=== PATIENT | male | born 1955 | race Caucasian/White ===

== ENCOUNTER 2024-03-01 13:43 | Emergency (ER) | payer OTHER, SELFPAY ==
[2024-03-01 13:55] VITALS: BP 156/82; PULSE 104; TEMP 37; O2SAT 95; BMI 35.1
--- NOTE | 2024-03-01 14:07 | ED.SKABFB1 ---
HPI - Skin/Abscess/Foreign Bdy General Chief complaint: Skin/Abscess/Foreign Body Stated complaint: RASH Time Seen by Provider: 03/01/24 13:45 Source: patient Mode of arrival: walk-in Limitations: no limitations History of Present Illness HPI narrative: Patient is a 68-year-old male who presents to the emergency department for evaluation of a rash that has been present for the last 6 to 7 weeks. He called to establish care with a local primary care provider and does not have an appointment for 12 days, the office instructed him to come to the ER today. He reports scabs/blistered areas that began on his face 6 to 7 weeks ago. He states within a matter of days he started noticing areas on his neck, extremities and between the thighs. He has minimal extension to the trunk. He states that the rash is more painful at night, he has occasional itching. There is drainage of blood when he opens a blister but that he has not had any purulence or serous fluid drainage. No medications taken prior to arrival. Related Data Previous Rx's ?Medication ?Instructions ?Recorded hydrocodone 5 mg-acetaminophen 325 1 tab PO Q6H PRN pain 3 days #12 03/01/24 mg tablet tabs hydroxyzine HCl 25 mg tablet 25 mg PO Q6H PRN itching #20 tabs 03/01/24 Allergies Allergy/AdvReac Type Severity Reaction Status Date / Time Sulfa (Sulfonamide AdvReac Mild jaundice Verified 03/01/24 13:55 Antibiotics) Review of Systems ROS Constitutional Denies: fever or chills Ears, nose, mouth, and throat Denies: throat pain or nasal congestion Cardiovascular Denies: chest pain Respiratory Denies: shortness of breath Gastrointestinal Denies: nausea or vomiting Integumentary/Breast Reports: rash, itching, redness, skin pain, skin tenderness and sores Hematologic/Lymphatic Denies: easy bruising or easy bleeding Allergic/Immunologic Denies: hives Exam Narrative Exam Narrative: Gen.: Awake, alert, in no distress Head: Normocephalic, atraumatic ENT: Moist mucous membranes Respiratory: No respiratory distress Extremities: Moves extremities equally Psych: Normal mood and affect Neuro: No focal neuro deficit Skin: Warm, dry, intact; Diffuse erythematous raised blistered areas over the face, neck, extremities. Rash is most concentrated on the posterior aspect of the forearms bilaterally as well as the inner thighs. There is no extension of the rash to the mucous membranes or palms of the hands. No petechia or purpura. No large areas of abscess or red streaking. Constitutional Vital Signs, click to edit/add: Last Vital Signs Temp 98.6 F 03/01/24 13:55 Pulse 104 H 03/01/24 13:55 Resp 20 03/01/24 13:55 BP 156/82 H 03/01/24 13:55 Pulse Ox 95 03/01/24 13:55 O2 Del Method Room Air 03/01/24 13:55 Course Vital Signs Vital signs: Vital Signs Temperature 98.6 F 03/01/24 13:55 Pulse Rate 104 H 03/01/24 13:55 Respiratory Rate 03/01/24 13:55 Blood Pressure 156/82 H 03/01/24 13:55 Pulse Oximetry 95 03/01/24 13:55 Oxygen Delivery Method Room Air 03/01/24 13:55 Temperature 98.6 F 03/01/24 13:55 Pulse Rate 104 H 03/01/24 13:55 Respiratory Rate 03/01/24 13:55 Blood Pressure 156/82 H 03/01/24 13:55 Pulse Oximetry 95 03/01/24 13:55 Oxygen Delivery Method Room Air 03/01/24 13:55 MDM - Skin/Abscess/Foreign Bdy MDM Narrative Medical decision making narrative: Patient was examined by myself and Dr. Baez, labs show no leukocytosis and the vital signs are within normal limits. At this time the cause of the patient's rash is not clear, he was treated for symptoms with medicine for itching and for pain. I contacted multiple dermatology offices to try and help the patient schedule an appointment. He needs to follow-up with his PCP and dermatology and return to the ER if symptoms change or worsen. SHARED APC VISIT, PHYSICIAN ATTESTATION: [id number] I performed a substantive part of the MDM during the patient?s E/M visit. I personally evaluated and examined the patient. I personally made or approved the documented management plan and acknowledge its risk of complications. Medical Records Attestation: I reviewed the patient's medical records. Lab Data Labs: Lab Results 03/01/24 Range/Units 14:29 WBC 6.6 (4.0-11.0) 10^3/uL RBC 5.41 (4.70-6.10) 10^6/uL Hgb 17.3 (14.0-18.0) g/dL Hct 51.5 (42.0-54.0) % MCV 95.2 H (80.0-94.0) fL MCH 32.0 (25.9-34.0) pg MCHC 33.6 (29.9-35.2) g/dL RDW 12.3 (11.0-15.0) % Plt Count 210 (150-450) 10^3/uL MPV 9.5 (9.5-13.5) fL Neut % (Auto) 73.1 (43.0-75.0) % Lymph % (Auto) 16.1 L (20.5-60.0) % Taylor % (Auto) 7.3 (1.7-12.0) % Eos % (Auto) 2.4 (0.9-7.0) % Baso % (Auto) 0.6 (0.2-2.0) % Neut # (Auto) 4.8 (1.4-6.5) 10^3/uL Lymph # (Auto) 1.1 L (1.2-3.8) 10^3/uL Taylor # (Auto) 0.5 (0.3-0.8) 10^3/uL Eos # (Auto) 0.2 (0.0-0.7) 10^3/uL Baso # (Auto) 0.0 (0.0-0.1) 10^3/uL Abs Immat Gran (auto) 0.03 (0.00-0.03) 10^3/uL Imm/Tot Granulo (auto) 0.5 (0.0-0.5) % ESR 84 H (<=20) mm/hr Sodium 137 (136-145) mmol/L Potassium 4.2 (3.5-5.1) mmol/L Chloride 100 (98-107) mmol/L Carbon Dioxide 28.7 (21.0-32.0) mmol/L Anion Gap 12.5 BUN 11.0 (7.0-18.0) mg/dL Creatinine 0.98 (0.70-1.30) mg/dL Est GFR ( Amer) >60 (>=60) Est GFR (Non-Af Amer) >60 (>=60) BUN/Creatinine Ratio 11.2 Glucose 290 H (74-106) mg/dL Calcium 8.4 L (8.5-10.1) mg/dL C-Reactive Protein 1.30 H (<=0.50) mg/dL Discharge Plan Discharge Stand Alone Forms: Portal Instructions Chief Complaint: Skin/Abscess/Foreign Body Clinical Impression: Skin rash Patient Disposition: Home, Self-Care Time of Disposition Decision: 15:22 Condition: Good Prescriptions / Home Meds: New hydrocodone-acetaminophen 5-325 mg tablet 1 tab PO Q6H PRN (Reason: pain) 3 Days Qty: 12 0RF Rx Instructions: DX: R21 hydroxyzine HCl 25 mg tablet 25 mg PO Q6H PRN (Reason: itching) Qty: 20 0RF Print Language: Malagasy Instructions: Acute Rash (ED) Additional Instructions: [facility] April 14 at 2:30pm in the [place] office, [address] - please call [phone] if you need to cancel or reschedule If you would like an appointment within a month, you can call [facility] in [place] at [phone] to schedule an appointment Referrals: DAFNE BALTAZAR [Primary Care Provider] - 1 week
[2024-03-01 14:39] LABS: Basophils Percent Auto 0.6 % (0.2-2.0); Eosinophils Absolute Auto 0.2 10^3/uL (0.0-0.7); Eosinophils Percent Auto 2.4 % (0.9-7.0); Hematocrit 51.5 % (42.0-54.0); Hemoglobin 17.3 g/dL (14.0-18.0); Immature Granulocytes Abs Auto 0.03 10^3/uL (0.00-0.03); Immature Granulocytes Pct Auto 0.5 % (0.0-0.5); Lymphocytes Absolute Auto 1.1 10^3/uL (1.2-3.8); Lymphocytes Percent Auto 16.1 % (20.5-60.0); Mean Corpuscular HGB Conc 33.6 g/dL (29.9-35.2); Mean Corpuscular Volume 95.2 fL (80.0-94.0); Mean Platelet Volume 9.5 fL (9.5-13.5); Monocytes Absolute Auto 0.5 10^3/uL (0.3-0.8); Monocytes Percent Auto 7.3 % (1.7-12.0); Neutrophils Absolute Auto 4.8 10^3/uL (1.4-6.5); Neutrophils Percent Auto 73.1 % (43.0-75.0); Platelet Count 210 10^3/uL (150-450); Red Blood Count 5.41 10^6/uL (4.70-6.10); Red Cell Distribution Width 12.3 % (11.0-15.0); White Blood Count 6.6 10^3/uL (4.0-11.0)
[2024-03-01 14:50] LABS: Anion Gap 12.5; BUN Creatinine Ratio 11.2; Calcium 8.4 mg/dL (8.5-10.1); Carbon Dioxide 28.7 mmol/L (21.0-32.0); Chloride 100 mmol/L (98-107); Estimated GFR (African America >60 (>=60); Estimated GFR (Non-African Ame >60 (>=60); Glucose 290 mg/dL (74-106); Potassium 4.2 mmol/L (3.5-5.1); Sodium 137 mmol/L (136-145)
[2024-03-01 14:53] LABS: Erythrocyte Sedimentation Rate 84 mm/hr (<=20)
[2024-03-01 15:40] VITALS: BP 152/78; PULSE 112; O2SAT 95
== END 2024-03-01 15:41 | disposition home or self-care (01) ==
PROVIDERS: Physician Assistant; Emergency Provider Emergency Medicine Emergency Medical Services
DX: R21 Rash and other nonspecific skin eruption (principal)
CPT/HCPCS: 36415; 80048; 85025; 85652; 86140; 99283